=== PATIENT | female | born 1980 | race Two or more races ===

== ENCOUNTER 2021-12-04 23:08 | Emergency (ER) | payer OTHER ==
[~2021-12-04] VITALS: Ht 160 cm; Wt 59.0 kg
[2021-12-04] MEDS ORDERED: SYNTHROID112 MCG (23:33)
[2021-12-05] MEDS ORDERED: TETRACYCLINE H500 MG PO (05:34)
[2021-12-05] MEDS ORDERED: MEDROLPACK PO (05:34)
[2021-12-05] MEDS ORDERED: ATARAX25 MG PO (05:34)
== END 2021-12-05 05:53 | disposition home or self-care (01) ==
LOC: ER 23:08
DX: M79.676 Pain in unspecified toe(s) (principal)